=== PATIENT | male | born 1940 | race Caucasian/White ===

== ENCOUNTER 2017-10-31 10:42 | Outpatient (CLI) | payer MEDICARE ==
--- NOTE | 2017-10-31 12:20 | CT ---
NONCONTRAST CT LUMBAR SPINE: 10/31/2017 HISTORY: Spondylolisthesis, lumbar region. Severe lower back pain. History of back surgery for bone spurs. FINDINGS: Vascular calcifications are seen in the visualized abdominal aorta and iliac arteries. The visualize d retroperitoneal structures have a normal nonenhanced CT appearance. No fracture or subluxation is seen involving the lumbar spine. Degenerative changes are present in t he lumbar spine with a Schmorl's node seen within the inferior endplates of the L3 and L4 vertebral b odies. T12-L1: There is no disk bulge or disk herniation. The central spinal canal and neural foramina are patent. L1-L2: There is no disk bulge or disk herniation. The central spinal canal and neural foramina are patent. L2-L3: There is a mild broad-based disk osteophyte complex with facet hypertrophic changes. There i s mild central stenosis. The neural foramina are patent. L3-L4: Mild loss of intervertebral disk height is noted. There is a mild broad-based disk osteophyt e complex with facet hypertrophic changes and mild ligamentous thickening. The central canal is not well delineated on this exam, but there does appear to be at least moderate narrowing of the central spinal canal. There is also moderate to severe left-sided neural foraminal narrowing with mild right -sided neural foraminal narrowing present. There is trace retrolisthesis of L3 on L4. L4-L5: There is evidence of a laminectomy defect. Vacuum phenomenon is seen within the intervertebr al disk. There is a broad-based disk osteophyte complex with facet hypertrophic changes. There is a t least mild narrowing of the central spinal canal. The right neural foramen is patent, but there is moderate left-sided neural foraminal narrowing. L5-S1: There is loss of intervertebral disk height. There is vacuum phenomenon in the intervertebr al disk. There is a laminectomy defect present at this level. There is a broad-based disk osteophyt e complex and facet degenerative changes at this level. There is moderate bilateral neural foraminal narrowing, with the degree of narrowing approaching severe in severity on the right. The central sp inal canal is patent. IMPRESSION: 1. 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 2. Trace retrolisthesis of L3 and L4. 3. Laminectomy defects at the L4-L5 and L5-S1 levels. POS: [id number]
== END 2017-10-31 10:43 | disposition home or self-care (01) ==
LOC: TBSIIMAG 10:42
PROVIDERS: ATTEND Nurse Practitioner Family
DX: M43.16 Spondylolisthesis, lumbar region (principal); M47.896 Other spondylosis, lumbar region; Z98.1 Arthrodesis status
CPT/HCPCS: 72131